=== PATIENT | female | born 1990 | race Caucasian/White ===

== ENCOUNTER 2016-12-15 10:43 | Inpatient (IN) | payer BC ==
[2016-12-14 11:40] LABS: BILIRUBIN,URINE NEGATIVE (NEGATIVE); BLOOD, URINE NEGATIVE (NEGATIVE); CLARITY/URINE CLEAR (CLEAR); COLOR,URINE YELLOW (YELLOW); GLUCOSE,URINE NEGATIVE (NEGATIVE); KETONES,URINE NEGATIVE (NEGATIVE); LEUKOCYTE ESTERASE ,URINE 3+ (NEGATIVE); NITRITE, URINE NEGATIVE (NEGATIVE); PROTEIN URINE NEGATIVE (NEGATIVE); UROBILINOGEN,URINE 0.2 (0.2-1.0)
[2016-12-14 12:04] LABS: RBC,URINE NONE SEEN /HPF (0-3); WBC,URINE 0-3 /HPF (0-3)
[2016-12-14 12:05] LABS: BACTERIA,URINE FEW /HPF (None Seen); MUCUS,URINE None Seen /LPF (None Seen)
[2016-12-14 12:15] LABS: BASOPHILS % (AUTO) 0.6 % (0.0-2.0); EOSINOPHILS # (AUTO) 0.2 K/uL (0.0-0.4); EOSINOPHILS % (AUTO) 2.4 % (0.0-4.0); HEMATOCRIT 37.9 % (36-48); HEMOGLOBIN 12.7 g/dL (12.0-16.0); LYMPHOCYTES # (AUTO) 1.8 K/uL (1.0-5.5); LYMPHOCYTES % (AUTO) 23.7 % (20.5-51.5); MEAN CORPUSCULAR HEMOGLOBIN 29 pg (27-31); MEAN CORPUSCULAR HGB CONC 34 % (32-36); MEAN CORPUSCULAR VOLUME 87 fL (79.0-98.0); MONOCYTES # (AUTO) 0.6 K/uL (0.0-1.0); MONOCYTES % (AUTO) 7.2 % (1.7-9.3); NEUTROPHILS # (AUTO) 5.1 K/uL (1.8-7.7); NEUTROPHILS % (AUTO) 66.1 % (40.0-70.0); RED BLOOD CELL COUNT(AUTO) 4.37 MIL/uL (4.2-6.2); RED CELL DISTRIBUTION WIDTH 13.2 % (9.0-15.0); WHITE BLOOD COUNT (AUTO) 7.7 K/uL (4.8-10.8)
[2016-12-14 12:19] LABS: PLATELET COUNT (AUTO) 267 K/uL (130-430)
[~2016-12-15] VITALS: Ht 167.6 cm; Wt 90.7 kg
[2016-12-15] MEDS ORDERED: LR 1,000 ML IV ONE (11:34)
[2016-12-15] MEDS ORDERED: CEFAZOLIN 2 GM IVPB PREMIX 50 ML IV ONE (11:45)
[2016-12-15] MEDS ORDERED: METOCLOPRAMIDE HCL 10 MG/2 ML VIAL IVP ONE (11:45)
[2016-12-15 12:49] LABS: BILIRUBIN,URINE NEGATIVE (NEGATIVE); BLOOD, URINE NEGATIVE (NEGATIVE); CLARITY/URINE CLEAR (CLEAR); COLOR,URINE YELLOW (YELLOW); GLUCOSE,URINE NEGATIVE (NEGATIVE); KETONES,URINE NEGATIVE (NEGATIVE); LEUKOCYTE ESTERASE ,URINE 2+ (NEGATIVE); NITRITE, URINE NEGATIVE (NEGATIVE); PROTEIN URINE NEGATIVE (NEGATIVE); UROBILINOGEN,URINE 0.2 (0.2-1.0)
[2016-12-15 13:05] LABS: BACTERIA,URINE FEW /HPF (None Seen); RBC,URINE 0-3 /HPF (0-3)
[2016-12-15 13:06] LABS: MUCUS,URINE None Seen /LPF (None Seen)
[2016-12-15] MEDS ORDERED: LR 1,000 ML IV SCH ×2 (14:40→16:12)
[2016-12-15] MEDS ORDERED: NALOXONE HCL 1 MG in NACL 0.9% 1,000 ML IV PRN ×4 (14:40)
[2016-12-15] MEDS ORDERED: DIPHENHYDRAMINE HCL 50 MG CAPSULE PO PRN (14:45)
[2016-12-15] MEDS ORDERED: MEPERIDINE HCL/PF 25 MG/ML DISP.SYRIN IVP PRN ×2 (14:45)
[2016-12-15] MEDS ORDERED: NALOXONE HCL 0.4 MG/ML AMP (NARCAN) IVP PRN ×3 (14:45)
[2016-12-15] MEDS ORDERED: HYDROmorphone 2 MG/ML VIAL IVP PRN ×2 (14:45)
[2016-12-15] MEDS ORDERED: HYDROmorphone 1 MG INJ. 1 MG/ML AMPUL IVP PRN (14:45)
[2016-12-15] MEDS ORDERED: ONDANSETRON HCL 4 MG/2 ML VIAL IVP PRN (14:45)
[2016-12-15 15:00] VITALS: BP_SYST 111
[2016-12-15] MEDS ORDERED: OXYTOCIN/NORMAL SALINE 1,000 ML IV ONE (16:12)
[2016-12-15] MEDS ORDERED: BISACODYL 10 MG/SUPPOSITORY RC PRN (16:15)
[2016-12-15] MEDS ORDERED: ANUSOL 1 EA SUPP.RECT (PREPARATION H) RC PRN (16:15)
[2016-12-15] MEDS ORDERED: SENNOSIDES/DOCUSATE SODIUM 1 TAB TABLET(SENOKOT-S) PO PRN (16:15)
[2016-12-15] MEDS ORDERED: LANOLIN 7 GM OINT. TP PRN (16:15)
[2016-12-15] MEDS: DIPHENHYDRAMINE INJ 50 MG/ML VIAL IVP PRN ×2 (18:09→20:49)
[2016-12-15] MEDS: KETOROLAC TROMETHAMINE 30 MG VIAL IVP SCH (23:38)
[2016-12-15] MEDS: CEFAZOLIN 1 GM IVPB PREMIX 50 ML IV SCH (23:38)
[2016-12-16] MEDS: DIPHENHYDRAMINE INJ 50 MG/ML VIAL IVP PRN (04:04)
[2016-12-16] MEDS: KETOROLAC TROMETHAMINE 30 MG VIAL IVP SCH ×2 (05:32→11:29)
[2016-12-16] MEDS: CEFAZOLIN 1 GM IVPB PREMIX 50 ML IV SCH ×2 (05:33→11:29)
[2016-12-16 07:27] LABS: BASOPHILS # (AUTO) 0.1 K/uL (0.0-0.2); BASOPHILS % (AUTO) 0.5 % (0.0-2.0); EOSINOPHILS # (AUTO) 0.1 K/uL (0.0-0.4); EOSINOPHILS % (AUTO) 1.1 % (0.0-4.0); HEMATOCRIT 30.3 % (36-48); HEMOGLOBIN 10.1 g/dL (12.0-16.0); LYMPHOCYTES % (AUTO) 18.2 % (20.5-51.5); MEAN CORPUSCULAR HEMOGLOBIN 29 pg (27-31); MEAN CORPUSCULAR HGB CONC 33 % (32-36); MEAN CORPUSCULAR VOLUME 87 fL (79.0-98.0); MONOCYTES # (AUTO) 0.7 K/uL (0.0-1.0); MONOCYTES % (AUTO) 6.8 % (1.7-9.3); NEUTROPHILS % (AUTO) 73.4 % (40.0-70.0); PLATELET COUNT (AUTO) 227 K/uL (130-430); RED BLOOD CELL COUNT(AUTO) 3.51 MIL/uL (4.2-6.2); RED CELL DISTRIBUTION WIDTH 13.2 % (9.0-15.0)
[2016-12-16 07:38] LABS: WHITE BLOOD COUNT (AUTO) 10.9 K/uL (4.8-10.8)
[2016-12-16] MEDS ORDERED: OXYCODONE/ACETAMINOPHEN 5-325 TABLET PO PRN (14:00)
[2016-12-16] MEDS: OXYCODONE/ACETAMINOPHEN 5-325 TABLET PO PRN ×2 (14:13→20:58)
[2016-12-16] MEDS: IBUPROFEN 600 MG TABLET PO SCH (18:01)
[2016-12-16] MEDS: DOCUSATE SODIUM 100 MG CAPSULE PO PRN (20:57)
[2016-12-17] MEDS: IBUPROFEN 600 MG TABLET PO SCH ×5 (00:03→23:45)
[2016-12-17] MEDS: OXYCODONE/ACETAMINOPHEN 5-325 TABLET PO PRN ×2 (04:21→20:49)
[2016-12-17] MEDS: SIMETHICONE 80 MG TAB.CHEW PO PRN ×2 (10:37→16:43)
[2016-12-17] MEDS ORDERED: DIPH-TET-PERTUS Vaccine 0.5 ML VIAL/Tdap (ADACEL) I.M. PRN (13:30)
[2016-12-17] MEDS: DOCUSATE SODIUM 100 MG CAPSULE PO PRN (14:41)
[2016-12-17] MEDS ORDERED: OXYCODONE/ACETAMINOPHEN 5-325 TABLET ONE (20:57)
[2016-12-18] MEDS: OXYCODONE/ACETAMINOPHEN 5-325 TABLET PO PRN (03:31)
[2016-12-18] MEDS: IBUPROFEN 600 MG TABLET PO SCH ×2 (05:44→12:04)
[2016-12-18] MEDS: DOCUSATE SODIUM 100 MG CAPSULE PO PRN (12:03)
[2016-12-18] MEDS: SIMETHICONE 80 MG TAB.CHEW PO PRN (12:04)
== END 2016-12-18 13:45 | disposition home or self-care (01) | DRG 765 ==
LOC: SPU 10:43
PROVIDERS: ADMIT Specialist; ATTEND Specialist
PROC: 10D00Z1 Extraction of Products of Conception, Low, Open Approach (ICD-10-PCS; principal; 2016-12-16)
DX: O40.3XX0 Polyhydramnios, third trimester, not applicable or unspecified (principal); O44.23 Partial placenta previa NOS or without hemorrhage, third trimester; Q79.6 Ehlers-Danlos syndromes; O36.63X0 Maternal care for excessive fetal growth, third trimester, not applicable or unspecified; Z37.0 Single live birth; Z3A.38 38 weeks gestation of pregnancy
CPT/HCPCS: 36415; 81000-TC; 85025; 86592; 86886; 86900; 86901; 87086; 90715; 94760; J0690; J1200; J1885; J2310; J2590; J7030; J7120

== ENCOUNTER 2020-12-28 11:04 | Observation (INO) | payer BC, SELFPAY ==
[~2020-12-28] VITALS: Ht 165.1 cm; Wt 77.1 kg
[2020-12-28] MEDS ORDERED: LR 1,000 ML IV ONE (11:15)
[2020-12-28] MEDS ORDERED: OXYTOCIN/0.9 % SODIUM CHLORIDE 1,000 ML IV SCH (11:15)
[2020-12-28] MEDS ORDERED: chlorproMAZINE HCL 50 MG/ 2 ML AMP IM PRN (11:15)
[2020-12-28] MEDS ORDERED: MISOPROSTOL 100 MCG TABLET (CYTOTEC) ONE (11:27)
[2020-12-28] MEDS ORDERED: MISOPROSTOL 100 MCG TABLET (CYTOTEC) VG ONE (11:30)
[2020-12-28] MEDS ORDERED: HYDROmorphone 1 MG/ML INJ. CARTRIDGE IVP PRN (11:30)
[2020-12-28 11:35] LABS: BASOPHILS # (AUTO) 0.1 K/uL (0.0-0.2); BASOPHILS % (AUTO) 1.1 % (0.0-2.0); EOSINOPHILS # (AUTO) 0.2 K/uL (0.0-0.4); EOSINOPHILS % (AUTO) 2.9 % (0.0-4.0); HEMATOCRIT 41.8 % (36-48); HEMOGLOBIN 14.5 g/dL (12.0-16.0); LYMPHOCYTES # (AUTO) 1.9 K/uL (1.0-5.5); LYMPHOCYTES % (AUTO) 31.1 % (20.5-51.5); MEAN CORPUSCULAR HEMOGLOBIN 30 pg (27-31); MEAN CORPUSCULAR HGB CONC 35 % (32-36); MEAN CORPUSCULAR VOLUME 87 fL (79.0-98.0); MONOCYTES # (AUTO) 0.4 K/uL (0.0-1.0); MONOCYTES % (AUTO) 6.8 % (1.7-9.3); NEUTROPHILS # (AUTO) 3.6 K/uL (1.8-7.7); NEUTROPHILS % (AUTO) 58.1 % (40.0-70.0); PLATELET COUNT (AUTO) 256 K/uL (130-430); RED BLOOD CELL COUNT(AUTO) 4.83 MIL/uL (4.2-6.2); RED CELL DISTRIBUTION WIDTH 12.4 % (9.0-15.0); WHITE BLOOD COUNT (AUTO) 6.2 K/uL (4.8-10.8)
[2020-12-28] MEDS ORDERED: chlorproMAZINE HCL 50 MG/ 2 ML AMP ONE (11:35)
[2020-12-28] MEDS: LR 1,000 ML IV SCH ×2 (11:40→18:52)
[2020-12-28 11:58] LABS: ALBUMIN 3.2 g/dL (3.4-4.8); CALCIUM 8.7 mg/dL (8.4-11.0); CREATININE 0.54 mg/dL (0.55-1.30); POTASSIUM 4.4 mmol/L (3.5-5.1); TOTAL BILIRUBIN 0.2 mg/dL (0.0-1.0)
[2020-12-28 12:01] LABS: INR 0.9 (0.8-1.2); PROTHROMBIN TIME 10.1 SECS (9.5-12.5)
[2020-12-28 12:39] VITALS: BP_SYST 104
[2020-12-28] MEDS ORDERED: MISOPROSTOL 25 MCG (0.025 MG) *QUARTER TABLET VG PRN (14:30)
[2020-12-28] MEDS ORDERED: MISOPROSTOL 100 MCG TABLET (CYTOTEC) VG PRN (14:45)
[2020-12-28] MEDS ORDERED: MISOPROSTOL 25 MCG (0.025 MG) *QUARTER TABLET VG SCH (16:00)
[2020-12-28] MEDS ORDERED: ONDANSETRON HCL 4 MG/2 ML VIAL IVP PRN (20:15)
[2020-12-28] MEDS: HYDROmorphone 2 MG/ML VIAL IVP PRN (20:32)
[2020-12-29] MEDS: HYDROmorphone 2 MG/ML VIAL IVP PRN (00:33)
[2020-12-29] MEDS ORDERED: MISOPROSTOL 25 MCG (0.025 MG) *QUARTER TABLET VG SCH (02:30)
[2020-12-29] MEDS ORDERED: MISOPROSTOL 100 MCG TABLET (CYTOTEC) PO SCH (02:30)
[2020-12-29] MEDS ORDERED: MISOPROSTOL 100 MCG TABLET (CYTOTEC) VG SCH (03:00)
[2020-12-29] MEDS: LR 1,000 ML IV SCH (03:18)
[2020-12-29] MEDS ORDERED: OXYTOCIN 10 UNIT/ML VIAL ONE (09:30)
[2020-12-29] MEDS ORDERED: ONDANSETRON HCL 4 MG/2 ML VIAL IVP PRN ×2 (09:45)
[2020-12-29] MEDS ORDERED: OXYCODONE/ACETAMINOPHEN 5-325 TABLET PO PRN ×2 (09:45)
[2020-12-29] MEDS ORDERED: METOCLOPRAMIDE HCL 10 MG/2 ML VIAL IVP PRN (09:45)
[2020-12-29] MEDS ORDERED: fentaNYL CITRATE/PF 100 MCG/2 ML AMP IVP PRN ×2 (09:45)
[2020-12-29] MEDS ORDERED: NALOXONE HCL 0.4 MG/ML AMP (NARCAN) IVP PRN (09:45)
[2020-12-29] MEDS ORDERED: HYDROcodone/ACETAMIN 5-325 MG TAB (NORCO/ VICODIN) PO PRN (09:45)
[2020-12-29 10:07] VITALS: BP_SYST 102
--- NOTE | 2020-12-29 10:25 | NUR ---
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
== END 2020-12-29 16:20 | disposition home or self-care (01) ==
LOC: SPU 11:04
PROVIDERS: ADMIT Specialist; ATTEND Specialist
DX: O03.4 Incomplete spontaneous abortion without complication (principal); Z20.822 Contact with and (suspected) exposure to COVID-19; O36.4XX0 Maternal care for intrauterine death, not applicable or unspecified; Z3A.17 17 weeks gestation of pregnancy; Z79.899 Other long term (current) drug therapy
CPT/HCPCS: 36415; 59812; 80053; 85025; 85384; 85610; 85730; 86886; 86900; 86901; 87426; 88305; 96361 ×2; 96365; 96366; 96372; 96375; 96376 ×2; G0378 ×2; G0379; J1170 ×3; J2405; J2590 ×2; J3230; 88307